=== PATIENT | female | born 1965 | race American Indian/Alaskan Native ===

== ENCOUNTER 2017-02-21 20:08 | Emergency (ER) | payer MEDICARE ==
[2017-02-21 20:30] VITALS: BP 160/90
--- NOTE | 2017-02-21 21:10 | Emergency Department Report ---
ED Psych HPI - General Chief Complaint: Psych Stated Complaint: MH EVAL Time Seen by Provider: 02/21/17 20:51 Source: patient, family, police Mode of arrival: Ambulatory Limitations: Other - History of Present Illness Initial Comments: 52-year-old female presents to the emergency Department via law enforcement for mental health evaluation. Per report, law enforcement was called to the patient 's apartment due to the patient being aggressive. Reportedly, the patient was throwing furniture around the apartment. Law enforcement and nursing reports that the patient was acting extremely paranoid on arrival in the emergency department. Patient is refusing to answer any questions. -: unknown Quality: constant Improves With: none Worsens With: none Treatments Prior to Arrival: placed on mental he - Related Data Home Medications Medication Instructions Recorded Confirmed Last Taken Escitalopram Oxalate [Lexapro] 20 mg PO DAILY 02/21/17 02/21/17 02/21/17 lamoTRIgine [LaMICtal] 50 mg PO QDAY 02/21/17 02/21/17 02/21/17 lamoTRIgine [LaMICtal] 100 mg PO QHS 02/21/17 02/21/17 02/21/17 Allergies Allergy/AdvReac Type Severity Reaction Status Date / Time milk Allergy Unknown Verified 02/21/17 20:31 ED Review of Systems ROS: Stated complaint: MH EVAL Other details as noted in HPI Comment: Unobtainable due to pts medical conditions ED Past Medical Hx - Past Medical History Previous Medical History?: Yes Hx Psychiatric Treatment: Yes (depression) Additional medical history: cocaine abuse - Surgical History Past Surgical History?: Yes Additional Surgical History: puja - Social History Smoking Status: Smoker, Current Status Unknown - Medications Home Medications: Home Medications Medication Instructions Recorded Confirmed Last Taken Type Escitalopram Oxalate [Lexapro] 20 mg PO DAILY 02/21/17 02/21/17 02/21/17 History lamoTRIgine [LaMICtal] 50 mg PO QDAY 02/21/17 02/21/17 02/21/17 History lamoTRIgine [LaMICtal] 100 mg PO QHS 02/21/17 02/21/17 02/21/17 History ED Physical Exam - General Limitations: No Limitations General appearance: alert, in no apparent distress - Head Head exam: Present: atraumatic, normocephalic - Eye Eye exam: Present: normal appearance, PERRL, EOMI - ENT ENT exam: Present: normal exam, normal orophraynx, mucous membranes moist - Neck Neck exam: Present: normal inspection, full ROM. Absent: tenderness - Respiratory Respiratory exam: Present: normal lung sounds bilaterally. Absent: respiratory distress - Cardiovascular Cardiovascular Exam: Present: regular rate, normal rhythm, normal heart sounds - GI/Abdominal GI/Abdominal exam: Present: soft, normal bowel sounds. Absent: distended, tenderness - Extremities Exam Extremities exam: Present: normal inspection, full ROM. Absent: tenderness - Back Exam Back exam: Present: normal inspection, full ROM. Absent: tenderness - Neurological Exam Neurological exam: Present: alert. Absent: motor sensory deficit - Psychiatric Psychiatric exam: Present: agitated, other (patient appears agitated. She will make eye contact but will quickly avert her gaze. Patient is uncooperative with exam) - Skin Skin exam: Present: warm, dry, intact ED Course Vital Signs 02/21/17 20:26 Temperature 98.4 F Pulse Rate 97 H Respiratory 22 Rate Blood Pressure 160/90 [Left] O2 Sat by Pulse 97 Oximetry ED Medical Decision Making - Lab Data Result diagrams: 02/21/17 21:49 02/21/17 21:49 - Medical Decision Making Form 1013 has been signed and placed on the patient's chart. Obtaining labs for medical clearance. She is awaiting mental evaluation. 225--lab results reviewed. Patient is medically cleared. - Differential Diagnosis depression with psychotic features, drug abuse, schizophrenia Critical care attestation.: If time is entered above; I have spent that time in minutes in the direct care of this critically ill patient, excluding procedure time. ED Disposition Clinical Impression: Psychosis Qualifiers: Psychosis type: brief psychotic disorder Qualified Code(s): F23 - Brief psychotic disorder Disposition: DC/TX PSY HOSP/PSY UNIT Is pt being admited?: No Condition: Stable Referrals: PRIMARY CAREMD [Primary Care Provider] - 3-5 Days Time of Disposition: 22:58
[2017-02-21 22:07] LABS: Urine Drugs of Abuse Note Disclamer
[2017-02-21 22:08] LABS: Basophils % (Auto) 0.5 % (0.0-1.8); Eosinophils % (Auto) 0.1 % (0.0-4.3); Hematocrit 46.3 % (30.3-42.9); Hemoglobin 15.4 gm/dl (10.1-14.3); Mean Corpuscular HGB Conc 33 % (30-34); Mean Corpuscular Hemoglobin 30 pg (28-32); Mean Corpuscular Volume 91 fl (79-97); Platelet Count 469 K/mm3 (140-440); Red Blood Count 5.09 M/mm3 (3.65-5.03); Red Cell Distribution Width 14.4 % (13.2-15.2); White Blood Count 11.9 K/mm3 (4.5-11.0)
[2017-02-21 22:34] LABS: Bilirubin,Urine NEG (Negative); Blood,Urine NEG (Negative); Ketones,Urine TR mg/dL (Negative); Leukocyte Esterase,Urine MOD (Negative); Mucus,Urine 3+ /HPF; Nitrite,Urine NEG (Negative)
[2017-02-21 22:44] LABS: BUN/Creatinine Ratio 18.46; Calcium 10.3 mg/dL (8.4-10.2); Chloride 102.3 mmol/L (98-107)
[2017-02-22] MEDS ORDERED: GEODON IM ONE ×2 (04:58)
== END 2017-02-22 14:23 ==
LOC: EEVIPCON 20:08 → ED 20:08
DX: F29 Unspecified psychosis not due to a substance or known physiological condition (principal); F23 Brief psychotic disorder; F32.9 Major depressive disorder, single episode, unspecified
CPT/HCPCS: 36415; 80048; 80307; 81001; 85025; 96372; 99285; G0480; J3486; 80320

== ENCOUNTER 2018-05-17 19:58 | Emergency (ER) | payer MEDICARE ==
[2018-05-17 21:10] LABS: Basophils # (Auto) 0.1 K/mm3 (0.0-0.1); Basophils % (Auto) 1.1 % (0.0-1.8); Eosinophils # (Auto) 0.3 K/mm3 (0.0-0.4); Eosinophils % (Auto) 3.8 % (0.0-4.3); Hematocrit 39.4 % (30.3-42.9); Lymphocytes # (Auto) 3.2 K/mm3 (1.2-5.4); Lymphocytes % (Auto) 45.7 % (13.4-35.0); Mean Corpuscular HGB Conc 33 % (30-34); Mean Corpuscular Hemoglobin 30 pg (28-32); Mean Corpuscular Volume 92 fl (79-97); Monocytes # (Auto) 0.7 K/mm3 (0.0-0.8); Monocytes % (Auto) 9.4 % (0.0-7.3); Platelet Count 402 K/mm3 (140-440)
[2018-05-17 21:21] LABS: BUN/Creatinine Ratio 19; Blood Urea Nitrogen 17 mg/dL (7-17); Calcium 10.1 mg/dL (8.4-10.2); Hemolysis Index 1
[2018-05-17 22:07] LABS: Amphetamine Screen,Urine PRESUMPTIVE NEGATIVE; Benzodiazepines Screen,Urine PRESUMPTIVE NEGATIVE; Cannabinoid Screen,Urine PRESUMPTIVE NEGATIVE; Cocaine Screen,Urine PRESUMPTIVE NEGATIVE; Methadone Screen,Urine PRESUMPTIVE NEGATIVE; Opiate Screen,Urine PRESUMPTIVE NEGATIVE
[2018-05-17 22:23] LABS: Bacteria,Urine 1+ /HPF (Negative); Bilirubin,Urine NEG (Negative); Blood,Urine NEG (Negative); Color,Urine Yellow (Yellow); Mucus,Urine FEW /HPF; Protein,Urine <15 mg/dL mg/dL (Negative); Urobilinogen,Urine < 2.0 mg/dL (<2.0)
[2018-05-18 02:45] VITALS: BP 141/78
[2018-05-18] MEDS ORDERED: LEVAQUIN PO ONE (03:17)
--- NOTE | 2018-05-18 03:17 | Emergency Department Report ---
HPI - General Chief Complaint: Medical Clearance Time Seen by Provider: 05/18/18 03:12 - [facility] HPI: Room 4 The patient is a 53-year-old female presenting with chief complaint of needing medical clearance to return to [facility]. The patient states she was at Hospital for depression. The patient states she was given a pass to go be with family and when she returned today she was told there is no record of her pass and that she needed to come to the ED to be medically cleared before she could be accepted again. Patient denies having any complaints. Location: Mental state Duration: [See above] Quality: Depression Severity: Mild Modifying factors: [see above] Context: [see above] Mode of transportation: [not driving] ED Past Medical Hx - Past Medical History Previous Medical History?: Yes Hx Psychiatric Treatment: Yes (depression) Additional medical history: cocaine abuse - Surgical History Past Surgical History?: No - Family History Family history: no significant - Social History Smoking Status: Current Every Day Smoker (1/2 pack per day) Substance Use Type: None (denies illicit drug use) - Medications Home Medications: Home Medications Medication Instructions Recorded Confirmed Last Taken Type Escitalopram Oxalate [Lexapro] 20 mg PO DAILY 02/21/17 02/21/17 02/21/17 History lamoTRIgine [LaMICtal] 50 mg PO QDAY 02/21/17 02/21/17 02/21/17 History lamoTRIgine [LaMICtal] 100 mg PO QHS 02/21/17 02/21/17 02/21/17 History levoFLOXacin [Levaquin TAB] 500 mg PO QDAY #7 tablet 05/18/18 Unknown Rx ED Review of Systems ROS: Stated complaint: MEDICAL CLEARANCE Other details as noted in HPI Constitutional: no symptoms reported Eyes: denies: eye pain ENT: denies: throat pain Respiratory: no symptoms reported Cardiovascular: denies: chest pain Endocrine: no symptoms reported Gastrointestinal: denies: abdominal pain Genitourinary: denies: dysuria Musculoskeletal: denies: back pain Neurological: denies: headache Psychiatric: depression Physical Exam - Physical Exam Vital Signs: Vital Signs 05/17/18 05/17/18 05/17/18 20:07 20:14 20:30 Temperature 98.3 F 98.3 F Pulse Rate 87 88 88 Respiratory 18 18 Rate Blood Pressure 155/86 Blood Pressure 155/86 [Right] O2 Sat by Pulse 100 100 100 Oximetry 05/18/18 02:43 Temperature Pulse Rate 63 Respiratory 14 Rate Blood Pressure Blood Pressure 141/78 [Right] O2 Sat by Pulse 98 Oximetry Physical Exam: GENERAL: The patient is well-developed well-nourished female lying on stretcher not appearing to be in acute distress. [] HEENT: Normocephalic. Atraumatic. Extraocular motions are intact. Patient has moist mucous membranes. NECK: Supple. Trachea midline CHEST/LUNGS: Clear to auscultation. There is no respiratory distress noted. HEART/CARDIOVASCULAR: Regular. There is no tachycardia. There is no gallop rub or murmur. ABDOMEN: Abdomen is soft, nontender. Patient has normal bowel sounds. There is no abdominal distention. SKIN: There is no rash. There is no edema. There is no diaphoresis. NEURO: The patient is awake, alert, and oriented. The patient is cooperative. The patient has normal speech MUSCULOSKELETAL: There is no evidence of acute injury. ED Course Vital Signs 05/17/18 05/17/18 05/17/18 20:07 20:14 20:30 Temperature 98.3 F 98.3 F Pulse Rate 87 88 88 Respiratory 18 18 Rate Blood Pressure 155/86 Blood Pressure 155/86 [Right] O2 Sat by Pulse 100 100 100 Oximetry 05/18/18 02:43 Temperature Pulse Rate 63 Respiratory 14 Rate Blood Pressure Blood Pressure 141/78 [Right] O2 Sat by Pulse 98 Oximetry ED Medical Decision Making - Lab Data Result diagrams: 05/17/18 20:49 05/17/18 20:49 Laboratory Tests 05/17/18 05/17/18 05/17/18 20:49 20:49 20:49 WBC RBC Hgb Hct MCV MCH MCHC RDW Plt Count Lymph % (Auto) [place] % (Auto) Eos % (Auto) Baso % (Auto) Lymph # [place] # Eos # Baso # Seg Neutrophils % Seg Neutrophils # Sodium 144 Potassium 3.7 Chloride 101.8 Carbon Dioxide 30 Anion Gap 16 BUN 17 Creatinine 0.9 Estimated GFR > 60 BUN/Creatinine Ratio 19 Glucose 89 Calcium 10.1 HCG, Qual Urine Color Urine Turbidity Urine pH Ur Specific [place] Urine Protein Urine Glucose (UA) Urine Ketones Urine Blood Urine Nitrite Urine Bilirubin Urine Urobilinogen Ur Leukocyte Esterase Urine WBC (Auto) Urine RBC (Auto) U Epithel Cells (Auto) Urine Bacteria (Auto) Urine Mucus Salicylates < 0.3 L Urine Opiates Screen Urine Methadone Screen Acetaminophen < 5.0 L Ur Barbiturates Screen Ur Phencyclidine Scrn Ur Amphetamines Screen U Benzodiazepines Scrn Urine Cocaine Screen U Marijuana (THC) Screen Drugs of Abuse Note Plasma/Serum Alcohol 05/17/18 05/17/18 05/17/18 20:49 20:49 20:49 WBC 7.0 RBC 4.30 Hgb 13.0 Hct 39.4 MCV 92 MCH 30 MCHC 33 RDW 15.0 Plt Count 402 Lymph % (Auto) 45.7 H [place] % (Auto) 9.4 H Eos % (Auto) 3.8 Baso % (Auto) 1.1 Lymph # 3.2 [place] # 0.7 Eos # 0.3 Baso # 0.1 Seg Neutrophils % 40.0 Seg Neutrophils # 2.8 Sodium Potassium Chloride Carbon Dioxide Anion Gap BUN Creatinine Estimated GFR BUN/Creatinine Ratio Glucose Calcium HCG, Qual Negative Urine Color Urine Turbidity Urine pH Ur Specific [place] Urine Protein Urine Glucose (UA) Urine Ketones Urine Blood Urine Nitrite Urine Bilirubin Urine Urobilinogen Ur Leukocyte Esterase Urine WBC (Auto) Urine RBC (Auto) U Epithel Cells (Auto) Urine Bacteria (Auto) Urine Mucus Salicylates Urine Opiates Screen Urine Methadone Screen Acetaminophen Ur Barbiturates Screen Ur Phencyclidine Scrn Ur Amphetamines Screen U Benzodiazepines Scrn Urine Cocaine Screen U Marijuana (THC) Screen Drugs of Abuse Note Plasma/Serum Alcohol < 0.01 05/17/18 05/17/18 21:45 21:45 WBC RBC Hgb Hct MCV MCH MCHC RDW Plt Count Lymph % (Auto) [place] % (Auto) Eos % (Auto) Baso % (Auto) Lymph # [place] # Eos # Baso # Seg Neutrophils % Seg Neutrophils # Sodium Potassium Chloride Carbon Dioxide Anion Gap BUN Creatinine Estimated GFR BUN/Creatinine Ratio Glucose Calcium HCG, Qual Urine Color Yellow Urine Turbidity Cloudy Urine pH 7.0 Ur Specific [place] 1.017 Urine Protein <15 mg/dl Urine Glucose (UA) Neg Urine Ketones Neg Urine Blood Neg Urine Nitrite Neg Urine Bilirubin Neg Urine Urobilinogen < 2.0 Ur Leukocyte Esterase Mod Urine WBC (Auto) 37.0 H Urine RBC (Auto) 6.0 U Epithel Cells (Auto) 6.0 Urine Bacteria (Auto) 1+ Urine Mucus Few Salicylates Urine Opiates Screen Presumptive negative Urine Methadone Screen Presumptive negative Acetaminophen Ur Barbiturates Screen Presumptive negative Ur Phencyclidine Scrn Presumptive negative Ur Amphetamines Screen Presumptive negative U Benzodiazepines Scrn Presumptive negative Urine Cocaine Screen Presumptive negative U Marijuana (THC) Screen Presumptive negative Drugs of Abuse Note Disclamer Plasma/Serum Alcohol - Differential Diagnosis UTI, depression Critical care attestation.: If time is entered above; I have spent that time in minutes in the direct care of this critically ill patient, excluding procedure time. ED Disposition Clinical Impression: UTI (urinary tract infection), Medical clearance for psychiatric admission Disposition: [id number]/TX-65 PSY HOSP/PSY UNIT Is pt being admited?: No Does the pt Need Aspirin: No Condition: Stable Instructions: Urinary Tract Infection in Women (ED) Additional Instructions: Return to the emergency department immediately should you develop worsening symptoms, fever, inability to tolerate food or liquid or any other concerns. Prescriptions: levoFLOXacin [Levaquin TAB] 500 mg PO QDAY #7 tablet Referrals: PRIMARY CARE, [Primary Care Provider] - 3-5 Days Time of Disposition: 03:23 (awaiting acceptance)
== END 2018-05-18 03:44 ==
LOC: ED 19:58
DX: N39.0 Urinary tract infection, site not specified (principal); F17.200 Nicotine dependence, unspecified, uncomplicated
CPT/HCPCS: 36415; 80048; 80307; 81001; 84703; 85025; 99284; G0480; 80320